=== PATIENT | female | born 1955 | race Caucasian/White ===

== ENCOUNTER 2020-11-21 19:29 | Emergency (ER) | payer OTHER ==
[2020-11-21 19:33] VITALS: BP 158/78; PULSE 80; TEMP 98.7; BMI 30.7
== END 2020-11-21 21:40 | disposition home or self-care (01) ==
LOC: FER 19:29
DX: S93.492A Sprain of other ligament of left ankle, initial encounter (principal)
CPT/HCPCS: 73610-TC-LT-FY; 99283-25

== ENCOUNTER 2022-11-16 09:20 | Emergency (ER) | payer OTHER, BC ==
[2022-11-16 09:28] VITALS: TEMP 97.8; BMI 29.7
[2022-11-16] MEDS ORDERED: ACETAMINOPHEN 1000 MG/100 ML BAG IVPB ONE (09:51)
[2022-11-16] MEDS ORDERED: SODIUM CHLORIDE 0.9% 500 ML INFUS.BAG IV ONE ×2 (09:51→11:03)
[2022-11-16] MEDS ORDERED: ACETAMINOPHEN INJECTION 100 ML IVPB ONE (10:04)
[2022-11-16 10:20] LABS: HEMOGLOBIN 15.3 G/dL (10.7-15.3); MCH 32.6 pg (25.7-33.7); MCHC 33.9 g/dl (32.0-36.0); MEAN CELL VOLUME 96.2 fl (80-96); PLATELET COUNT 294.8 10^3/uL (134-434); RBC 4.68 10^6/uL (3.60-5.2); RDW 13.2 % (11.6-15.6); WHITE BLOOD COUNT 10.6 10^3/uL (4.0-10.8)
[2022-11-16 10:26] LABS: ALBUMIN 4.1 g/dl (3.4-5.0); CALCIUM 9.1 mg/dl (8.5-10); CREATININE 0.6 mg/dl (0.55-1.3); MAGNESIUM 1.9 mg/dL (1.8-2.4); TOT PROT 6.7 g/dl (6.4-8.2)
[2022-11-16 10:30] LABS: PLATELET ESTIMATE ADEQUATE
[2022-11-16] MEDS ORDERED: METOCLOPRAMIDE HCL INJECTION 10 MG/2 ML VIAL IVPB ONE (11:03)
[2022-11-16] MEDS ORDERED: METOCLOPRAMIDE HCL INJECTION 10 MG/2 ML VIAL ONE (11:04)
[2022-11-16 11:33] VITALS: BP 127/73; PULSE 68; RESP 15
== END 2022-11-16 12:49 | disposition home or self-care (01) ==
LOC: FER 09:20
PROC: 3E0333Z Introduction of Anti-inflammatory into Peripheral Vein, Percutaneous Approach (ICD-10-PCS; principal; 2022-11-16)
PROC: 3E033GC Introduction of Other Therapeutic Substance into Peripheral Vein, Percutaneous Approach (ICD-10-PCS; 2022-11-16)
DX: R42 Dizziness and giddiness (principal); R51.9 Headache, unspecified
CPT/HCPCS: 36415; 70450-TC; 80053; 81003; 83735; 84484; 85027; 87086; 93005; 99285-25

== ENCOUNTER 2022-11-21 20:23 | Emergency (ER) | payer OTHER, BC ==
[2022-11-21] MEDS ORDERED: ACETAMINOPHEN 500 MG TABLET (FP) PO ONE (20:45)
[2022-11-21] MEDS ORDERED: ACETAMINOPHEN 500 MG TABLET (FP) ONE (20:46)
[2022-11-21 21:15] VITALS: BP 135/72; PULSE 86; RESP 18; TEMP 97.8; BMI 29.0
== END 2022-11-21 22:55 | disposition home or self-care (01) ==
LOC: FER 20:23
DX: M25.561 Pain in right knee (principal)
CPT/HCPCS: 73562-TC-RT-FY; 93971-TC; 99284-25